=== PATIENT | female | born 1970 | race African-American/Black ===

== ENCOUNTER 2019-03-21 01:50 | Emergency (ER) | payer OTHER ==
[~2019-03-21] VITALS: Ht 160 cm; Wt 106.6 kg
[~2019-03-21 01:50] MED LIST: BACTRIM DS TAB1 EACH PO; CARISOPRODOL 3350 MG PO; CIPROFLOXACIN500 M1 PO; CLONAZEPAM; CYMBALTA60 MG PO; HYDROCHLOROTHIA25 M1 PO; LUNESTA3 MG PO; MACROBID 100 M100 M1 PO; NAPROSYN500 MG PO; POTASSIUM20; SEROQUEL XR 30300 M1 PO; SEROQUEL XR400 M1 PO; TOPAMAX50 MG PO; TRILEPTAL150 MG; ULTRAM 50MG TAB50 MG PO; VYBRID
[2019-03-21] MEDS ORDERED: ABILIFY MAINTE300 M1 IM (02:23)
[2019-03-21] MEDS ORDERED: VICTOZA0.6 MG/0.1 SUBQ (02:24)
[2019-03-21] MEDS ORDERED: TOPAMAX 100 MG100 MG PO (02:24)
[2019-03-21 05:10] VITALS: BP 162/60
== END 2019-03-21 05:20 | disposition home or self-care (01) ==
LOC: ER 01:50
DX: G43.909 Migraine, unspecified, not intractable, without status migrainosus (principal); F17.200 Nicotine dependence, unspecified, uncomplicated; I10 Essential (primary) hypertension; F31.9 Bipolar disorder, unspecified; E78.5 Hyperlipidemia, unspecified; K21.9 Gastro-esophageal reflux disease without esophagitis; J45.909 Unspecified asthma, uncomplicated; M79.7 Fibromyalgia; Z90.49 Acquired absence of other specified parts of digestive tract; Z90.89 Acquired absence of other organs

== ENCOUNTER → 2019-12-31 | Emergency (ER) | payer OTHER ==
[~2019-12-31] VITALS: Ht 165.1 cm; Wt 101.2 kg
[~2019-12-31] MED LIST changes: +ABILIFY MAINTE300 M1 IM; +TOPAMAX 100 MG100 MG PO; +VICTOZA0.6 MG/0.1 SUBQ
[2019-12-31 16:35] VITALS: BP 145/81
== END ==
LOC: ER 16:34
DX: G89.29 Other chronic pain (principal); M25.551 Pain in right hip; I10 Essential (primary) hypertension; F31.9 Bipolar disorder, unspecified; E78.5 Hyperlipidemia, unspecified; M79.7 Fibromyalgia; J45.909 Unspecified asthma, uncomplicated; Z90.89 Acquired absence of other organs